=== PATIENT | female | born 1960 | race Caucasian/White ===

== ENCOUNTER 2019-11-05 11:16 | Outpatient (CLI) | payer OTHER, SELFPAY ==
[2019-11-05 11:29] LABS: Hematocrit 41.5 % (35.0-49.0); Hemoglobin 13.6 g/dL (12.0-15.0); Mean Corpuscular HGB Conc 32.8 g/dL (32.0-36.0); Mean Corpuscular Hemoglobin 30.9 pg (27.0-31.0); Mean Corpuscular Volume 94.3 fL (78.0-102.0); Mean Platelet Volume 10.3 fl (9.2-11.8); Platelet Count Result 258 K/mm3 (150-420); Red Cell Distribution Width 13.1 % (11.6-14.4); White Blood Count 7.5 K/mm3 (4.8-10.8)
[2019-11-05 12:20] LABS: Alanine Aminotransferase 24 U/L (14-59); Albumin Level 3.6 g/dL (3.4-5.0); Alkaline Phosphatase 74 U/L (46-116); Anion Gap 11.1 mmol/L (7-16); Aspartate Amino Transferase 21 U/L (15-37); Bilirubin,Total 0.2 mg/dL (0.00-1.00); Blood Urea Nitrogen 24 mg/dL (7-18); Calcium 9.2 mg/dL (8.5-10.1); Carbon Dioxide 29 mmol/L (21-32); Chloride 103 mmol/L (98-108); Cholesterol 185 mg/dL (0-200); Estimated Glomerular Filt Rate > 60; Glucose 100 mg/dL (70-99); HDL Direct 64 mg/dL (40-60); LDL Cholesterol Calculated 86 mg/dL (<130); Osmolality Calculated 292 mOsm/kg (285-295); Potassium 4.1 mmol/L (3.5-5.1); Sodium 139 mmol/L (136-145); Total Protein 6.8 g/dL (6.4-8.2); Triglycerides 173 mg/dL (0-150)
[2019-11-05 12:40] LABS: Thyroid Stimulating Hormone Reflex 1.27 u/IU/mL (0.36-3.74)
== END 2019-11-05 11:17 | disposition home or self-care (01) ==
PROVIDERS: PCP Family Medicine; Visit Provider Family Medicine
DX: I10 Essential (primary) hypertension (principal)
CPT/HCPCS: 36415; 80053; 80061; 84443; 85027

== ENCOUNTER 2021-05-16 15:45 | Outpatient (CLI) | payer OTHER, SELFPAY ==
[2021-05-18 21:43] LABS: H pylori, Urea Breath NOT DETECTED (NOT DETECTED)
== END 2021-05-16 15:46 | disposition home or self-care (01) ==
LOC: CHSLAB 15:48
PROVIDERS: PCP Family Medicine; Visit Provider Family Medicine
DX: K21.9 Gastro-esophageal reflux disease without esophagitis (principal)
CPT/HCPCS: 83013

== ENCOUNTER 2021-09-20 15:38 | Outpatient (CLI) | payer OTHER, SELFPAY ==
[2021-09-20 15:58] LABS: Hematocrit 40.2 % (35.0-49.0); Hemoglobin 12.8 g/dL (12.0-15.0); Mean Corpuscular HGB Conc 31.8 g/dL (32.0-36.0); Mean Corpuscular Hemoglobin 30.7 pg (27.0-31.0); Mean Corpuscular Volume 96.4 fL (78.0-102.0); Mean Platelet Volume 10.9 fl (9.2-11.8); Platelet Count Result 214 K/mm3 (150-420); Red Blood Count 4.17 M/mm3 (4.20-5.40); Red Cell Distribution Width 12.5 % (11.6-14.4); White Blood Count 6.5 K/mm3 (4.8-10.8)
[2021-09-20 16:49] LABS: Alanine Aminotransferase 29 U/L (14-59); Albumin Level 3.4 g/dL (3.4-5.0); Alkaline Phosphatase 66 U/L (46-116); Anion Gap 8 mmol/L (8-16); Aspartate Amino Transferase 20 U/L (15-37); Bilirubin,Total 0.3 mg/dL (0.00-1.00); Blood Urea Nitrogen 17 mg/dL (7-18); Calcium 8.6 mg/dL (8.5-10.1); Carbon Dioxide 26 mmol/L (21-32); Chloride 104 mmol/L (98-108); Estimated Glomerular Filt Rate > 60; Glucose 93 mg/dL (70-99); Osmolality Calculated 287 mOsm/kg (285-295); Potassium 3.6 mmol/L (3.5-5.1); Sodium 138 mmol/L (136-145); Total Protein 6.7 g/dL (6.4-8.2); Vitamin B12 789 pg/mL (193-986)
[2021-09-20 16:51] LABS: Thyroid Stimulating Hormone Reflex 1.53 u/IU/mL (0.36-3.74)
== END 2021-09-20 15:39 | disposition home or self-care (01) ==
LOC: CHSLAB 15:41
PROVIDERS: PCP Family Medicine; Visit Provider Family Medicine
DX: R53.83 Other fatigue (principal); E11.9 Type 2 diabetes mellitus without complications; E53.8 Deficiency of other specified B group vitamins
CPT/HCPCS: 36415; 80053; 82607; 82746; 83735; 84443; 85027

== ENCOUNTER 2022-03-14 10:16 | Day surgery (SDC) | payer OTHER, SELFPAY ==
[2021-11-29 08:48] VITALS: BMI 29.4
[2022-02-28 08:54] VITALS: BMI 28.5
[2022-03-14 10:50] VITALS: BP 127/96; PULSE 57; RESP 16; TEMP 37.2; O2SAT 99
--- NOTE | 2022-03-14 11:43 | WPDANESEPPF ---
Anes - Initial Pre Proc Eval Procedure: Operation Date: 03/14/22 12:00 Proposed Procedures p Esophagogastroduodenoscopy - Joni Campbell MD s Screening Colonoscopy - Joni Campbell MD Date/Time: 03/14/22 11:43 Surgeon: Joni Campbell MD Pre Op Diagnosis: Gerd and Family History of Colon Cancer Patient Data Age: 61 Gender: F Height: 1.6 m Weight: 71.4 kg Allergies Allergy/AdvReac Type Severity Reaction Status Date / Time No Known Allergies Allergy Mild Verified 03/14/22 10:51 Home Medications Medication Instructions Recorded Confirmed Type estradiol 0.5 mg tablet 0.5 mg PO DAILY 11/05/19 03/14/22 History escitalopram oxalate 10 mg tablet See Rx Instructions .Route 12/05/21 03/14/22 Rx .COMPLEX #90 tabs propranolol 60 mg tablet See Rx Instructions .Route 12/05/21 03/14/22 Rx .COMPLEX #180 tabs pantoprazole 40 mg tablet,delayed See Rx Instructions .Route 01/23/22 03/14/22 Rx release .COMPLEX #90 tabs meloxicam 15 mg tablet See Rx Instructions .Route 02/02/22 03/14/22 Rx .COMPLEX #90 tabs diphenhydramine HCl 25 mg capsule 25 mg PO HS 02/28/22 03/14/22 History (Benadryl) pseudoephedrine HCl 60 mg tablet 60 mg PO DAILY 02/28/22 03/14/22 History Patient hx anesthesia problems: none Family hx anesthesia problems: none Results Review: All pre-operative results and documents have been reviewed as part of the pre-operative evaluation. [facility] Past Medical History Medical History Chronic headache Family history of colon cancer Family history- stomach cancer Fatigue History of traumatic brain injury Hormone replacement therapy Hypertension Osteoarthritis Surgical History Surgical History History of breast augmentation History of hysterectomy 1999 Family History Family History Mother Family history of chronic obstructive pulmonary disease Family history of cardiovascular disease Father Family history of lung cancer Sibling Family history of renal failure Family history of lupus erythematosus Other Hypertension Social History Social History Smoking packs per day: 2 Smoking cigarettes per day: 40.0 Years smoked: 40 Smoking pack-years: 80.00 Smoking status: Former smoker Tobacco type: cigarettes Additional smoking assessment comments: Quit 2007. 35 pk yr history Alcohol intake: never Substance use: never Substance use type: does not use Living arrangements: with family Spiritual care concerns: No Anes - Eval Final PreProcedure Day of Procedure 03/14/22 11:43 Patient weight: overweight Heart: regular rate and rhythm Lungs: clear to auscultation Airway: Mallampati scale class II Neurological: alert and oriented Last oral intake: >/= 8 hours ASA classification: II Emergent: no Anesthesia type and monitoring: general GIVS and standard monitoring Results Review: All pre-operative results and documents have been reviewed as part of the pre-operative evaluation. Informed Consent: The patient's anesthetic plan and its attendant risks and benefits were discussed with the patient/family/POA. Questions were solicited and answers provided to the satisfaction of the patient/family/POA.
[2022-03-14] MEDS: LACTATED RINGERS 1,000 ML 150 ML IV CONT (11:53)
--- NOTE | 2022-03-14 12:15 | PM.HPGS ---
History of Present Illness History of Present Illness Consent: Risks, benefits, and alternatives have been discussed and questions answered. Patient agrees to proceed with procedure. Chief complaint: Gerd and Family History of Colon Cancer Narrative: Luis Paiz is a 61 year old female with gerd on protonix, also had colonoscopy at 52yo. she had one sister that from stomach cancer at her early 50's, another sister with advanced colon cancer late 60's. Review of Systems Constitutional: Constitutional: Denies headache(s) and Denies weakness Eyes: Eyes: Denies blurry vision ENT: Reports Normal hearing present, Denies headache(s) and Denies neck pain Cardiovascular: Cardiovascular: Denies chest pain and Denies dyspnea Respiratory: Respiratory: Denies dyspnea Gastrointestinal: Gastrointestinal: Reports no additional gastrointestinal complaints Genitourinary: Genitourinary: Denies dysuria Musculoskeletal: Musculoskeletal: Denies neck pain Integumentary/Breasts: Skin/Breast: Denies dry skin Neurologic: Reports Normal hearing present, Denies headache(s) and Denies weakness Psychiatric: Psychiatric: Denies anxiety Endocrine: Endocrine: Denies change in body appearance Hematologic/Lymphatic: Hematologic/Lymphatic: Denies easy bleeding Allergic/Immunologic: Allergic/Immunologic: Denies urticaria PMFSH Past Medical History Medical History Chronic headache Family history of colon cancer Family history- stomach cancer Fatigue History of traumatic brain injury Hormone replacement therapy Hypertension Osteoarthritis Surgical History Surgical History History of breast augmentation History of hysterectomy 1999 Family History Family History Mother Family history of chronic obstructive pulmonary disease Family history of cardiovascular disease Father Family history of lung cancer Sibling Family history of renal failure Family history of lupus erythematosus Other Hypertension Social History Social History Smoking packs per day: 2 Smoking cigarettes per day: 40.0 Years smoked: 40 Smoking pack-years: 80.00 Smoking status: Former smoker Tobacco type: cigarettes Additional smoking assessment comments: Quit 2008. 35 pk yr history Alcohol intake: never Substance use: never Substance use type: does not use Living arrangements: with family Spiritual care concerns: No Meds Home Medications and Allergies Home Medications Medication Instructions Recorded Confirmed Type estradiol 0.5 mg tablet 0.5 mg PO DAILY 11/05/19 03/14/22 History escitalopram oxalate 10 mg tablet See Rx Instructions .Route 12/05/21 03/14/22 Rx .COMPLEX #90 tabs propranolol 60 mg tablet See Rx Instructions .Route 12/05/21 03/14/22 Rx .COMPLEX #180 tabs pantoprazole 40 mg tablet,delayed See Rx Instructions .Route 01/23/22 03/14/22 Rx release .COMPLEX #90 tabs meloxicam 15 mg tablet See Rx Instructions .Route 02/02/22 03/14/22 Rx .COMPLEX #90 tabs diphenhydramine HCl 25 mg capsule 25 mg PO HS 02/28/22 03/14/22 History (Benadryl) pseudoephedrine HCl 60 mg tablet 60 mg PO DAILY 02/28/22 03/14/22 History Allergies Allergy/AdvReac Type Severity Reaction Status Date / Time No Known Allergies Allergy Mild Verified 03/14/22 10:51 Vital Signs Vital Signs - 24 hr 03/14/22 10:50 Temperature 99 F Pulse Rate 57 L Respiratory Rate 16 Blood Pressure 127/96 H Pulse Oximetry 99 Oxygen Delivery Room Air Exam Const: General: comfortable and no acute distress HENMT: Face/Nose/Sinus: Normal nares present Eyes: General: appearance normal, both eyes and all related structures Neck: Neck: no JVD Resp: Auscultation: clear to auscultation bilaterally Cardio:
[2022-03-14 12:37] VITALS: BP 104/68; PULSE 53; RESP 12; O2SAT 98
[2022-03-14 12:47] VITALS: BP 123/73; PULSE 55; RESP 12; O2SAT 100
--- NOTE | 2022-03-14 12:47 | WPDANESPN ---
Anes - Prog Note Post-Op Date/Time: 03/14/22 12:47 Cardiovascular status: normal Respiratory status: normal Airway patency: baseline Mental status: baseline Post-Op hydration status: normal Vital Signs: Last Vital Signs Temp 37.2 C 03/14/22 10:50 Pulse 53 L 03/14/22 12:37 Resp 12 03/14/22 12:37 BP 104/68 03/14/22 12:37 Pulse Ox 98 03/14/22 12:37 O2 Del Method Room Air 03/14/22 12:37 Pain Score (VAS): 0/10 I/O: Intake & Output 03/13/22 03/14/22 03/14/22 23:59 07:59 15:59 Intake Total 300 Balance 300 Patient Feedback: Patient satisfied with anesthetic care.
[2022-03-14 12:57] VITALS: BP 115/66; PULSE 58; RESP 12; O2SAT 100
== END 2022-03-14 13:12 | disposition home or self-care (01) ==
PROVIDERS: PCP Family Medicine; Visit Provider Internal Medicine Gastroenterology
PROC: 0DJ08ZZ Inspection of Upper Intestinal Tract, Via Natural or Artificial Opening Endoscopic (ICD-10-PCS; CPT 43235; principal; 2022-03-14 12:00)
PROC: 0DJD8ZZ Inspection of Lower Intestinal Tract, Via Natural or Artificial Opening Endoscopic (ICD-10-PCS; CPT 45378; 2022-03-14 12:00)
DX: Z80.0 Family history of malignant neoplasm of digestive organs (principal)
CPT/HCPCS: 45378; 43239

== ENCOUNTER 2022-03-14 13:00 | Outpatient (NON) | payer OTHER, SELFPAY | END 2022-03-14 13:01 | disposition home or self-care (01) | PROVIDERS: PCP Family Medicine; Visit Provider Internal Medicine Gastroenterology | DX: K21.9 Gastro-esophageal reflux disease without esophagitis (principal) | CPT/HCPCS: 88305 ==

== ENCOUNTER 2023-05-17 11:43 | Outpatient (CLI) | payer OTHER, SELFPAY ==
[2023-05-17 12:09] LABS: Basophils Absolute Auto 0.05 K/mm3 (0.00-0.10); Basophils Percent Auto 0.6 % (0.0-1.0); Eosinophils Absolute Auto 0.39 K/mm3 (0.02-0.50); Eosinophils Percent Auto 4.6 % (1.0-6.0); Hematocrit 39.5 % (35.0-49.0); Hemoglobin 12.7 g/dL (12.0-15.0); Immature Granulocyte Absolute 0.03 K/mm3 (0.00-0.00); Immature Granulocyte Percent A 0.4 % (0.0-0.0); Lymphocytes Absolute Auto 1.75 K/mm3 (1.10-4.50); Lymphocytes Percent Auto 20.5 % (18.0-42.0); Mean Corpuscular HGB Conc 32.2 g/dL (32.0-36.0); Mean Corpuscular Hemoglobin 31.2 pg (27.0-31.0); Mean Corpuscular Volume 97.1 fL (78.0-102.0); Monocytes Absolute Auto 0.66 K/mm3 (0.10-0.90); Monocytes Percent Auto 7.7 % (2.0-11.0); Neutrophils Absolute Auto 5.7 K/mm3 (1.7-7.2); Neutrophils Percent Auto 66.2 % (50.0-70.0); Platelet Count Result 253 K/mm3 (150-420); Red Blood Count 4.07 M/mm3 (4.20-5.40); Red Cell Distribution Width 13.4 % (11.6-14.4); White Blood Count 8.6 K/mm3 (4.8-10.8)
[2023-05-17 15:15] LABS: Alanine Aminotransferase 30 U/L (14-59); Albumin Level 3.5 g/dL (3.4-5.0); Alkaline Phosphatase 86 U/L (46-116); Anion Gap 7 mmol/L (8-16); Aspartate Amino Transferase 18 U/L (15-37); Bilirubin,Total 0.3 mg/dL (0.00-1.00); Blood Urea Nitrogen 14 mg/dL (7-18); Calcium 9.1 mg/dL (8.5-10.1); Carbon Dioxide 29 mmol/L (21-32); Chloride 102 mmol/L (98-108); Cholesterol 167 mg/dL (0-200); Estimated Glomerular Filt Rate > 60; Glucose 80 mg/dL (70-99); HDL Direct 73 mg/dL (40-60); LDL Cholesterol Calculated 80 mg/dL (<130); Osmolality Calculated 285 mOsm/kg (285-295); Potassium 4.4 mmol/L (3.5-5.1); Sodium 138 mmol/L (136-145); Triglycerides 68 mg/dL (0-150)
== END 2023-05-17 11:44 | disposition home or self-care (01) ==
LOC: CHSLAB 11:45
PROVIDERS: PCP Family Medicine; Visit Provider Family Medicine
DX: Z00.00 Encounter for general adult medical examination without abnormal findings (principal)
CPT/HCPCS: 36415; 80053; 80061; 85025

== ENCOUNTER 2024-11-05 10:12 | Emergency (ER) | payer BC, SELFPAY ==
[2024-11-05 10:13] VITALS: BP 130/55; PULSE 51; RESP 18; TEMP 36.7; O2SAT 97
--- NOTE | 2024-11-05 10:16 | ED_ITS ---
HPI - Wound/Laceration General Chief Complaint: Wound/Laceration Stated Complaint: wound to rt. pointer finger Time Seen by Provider: 11/05/24 10:15 Source: patient Mode of arrival: ambulatory Limitations: no limitations History of Present Illness HPI narrative: Patient is a 64-year-old female with a right pointer finger extensor surface deep laceration after getting it into a doorjamb prior to arrival. This was an accident. She was caring a laundry basket and it got lacerated while walking and hitting the door jam. Tetanus shot 2018. No major bleeding or pain. Onset (ago): hour(s) ( One) Location: other ( right pointer finger extensor surface) Place: home Patient tetanus UTD: No ( more than 5 years) Context: accidental Associated symptoms: none Treatments prior to arrival: bandage Related Data Home Medications ?Medication ?Instructions ?Recorded ?Confirmed ?Last Taken ?Type estradiol 0.5 mg tablet 0.5 mg PO DAILY 09/30/24 09/30/24 Unknown History Allergies Allergy/AdvReac Type Severity Reaction Status Date / Time No Known Allergies Allergy Mild Verified 09/30/24 09:10 Review of Systems Review of Systems: All systems reviewed & are unremarkable except as noted in HPI and below Constitutional: Constitutional: Reports no additional constitutional complaints Eyes: Eyes: Reports no additional eye complaints ENT: Reports system reviewed and no additional complaints, except as documented Cardiovascular: Cardiovascular: Reports no additional cardiovascular c omplaints Respiratory: Respiratory: Reports no additional respiratory complaints Gastrointestinal: Gastrointestinal: Reports no additional gastrointestinal complaints Genitourinary: Genitourinary: Reports no additional female genitourinary complaints Musculoskeletal: Musculoskeletal: Reports no additional musculoskeletal complaints Integumentary/Breasts: Skin/Breast: Reports system reviewed and no additional complaints, except as docu Neurologic: Reports system reviewed and no additional complaints, except as documented Psychiatric: Psychiatric: Reports no additional psychiatric complaints Endocrine: Endocrine: Reports no additional endocrine complaints Hematologic/Lymphatic: Hematologic/Lymphatic: Reports no additional hematolo gic/lymphatic complaints Allergic/Immunologic: Allergic/Immunologic: Reports no additional allergic/immunologic complaints PMFSH Past Medical History Medical History Family history- stomach cancer Family history of colon cancer Fatigue Chronic headache History of traumatic brain injury Hormone replacement therapy Osteoarthritis Hypertension Surgical History Surgical History History of breast augmentation History of hysterectomy 1999 Family History Family History Mother Family history of chronic obstructive pulmonary disease Family history of cardiovascular disease Father Family history of lung cancer Sibling Family history of renal failure Family history of lupus erythematosus Other Hypertension Social History Social History Smoking packs per day: 2 Smoking cigarettes per day: 40.0 Years smoked: 40 Smoking pack-years: 80.00 Smoking status: Former smoker Tobacco type: cigarettes Additional smoking assessment comments: Quit 2008. 35 pk yr history Alcohol intake: never Substance use: never Substance use type: does not use Living arrangements: with family Spiritual care concerns: No Exam Const: General: healthy appearing Nutritional Appearance: well nourished Orientation/consciousness: patient oriented x3 HENMT: Head: normal to inspection Ears: external ears normal Face/Nose/Sinus: Normal external nose present Eyes: Conjunctivae: conjunctivae normal Pupils: Equal, round and reactive pupils present EOM: EOMs intact bilaterally Neck: Neck: normal visual inspection Chest: Chest palpation & inspection: normal inspection of the chest Resp: Effort & Inspection: normal respiratory effort and not labored Auscultation: clear to auscultation bilaterally and no crackles Cardio: Rate: regular rate Rhythm: regular rhythm Heart sounds: no murmurs GI: Inspection: non-distended GI Palp: Yes Soft to palpation, No Tenderness to palpation present (GI) and No Guarding due to palpation present (GI) Auscultation: normal bowel sounds Back/Spine/Pelvis: Back: no CVA tenderness Skin: General skin exam: normal color Rashes: no rashes Wounds: wound noted Other: right pointer finger extensor surface lateral aspect has a curvilinear flap laceration of 6 cm without bleeding or signs of infection; this is a deep wound down to the tendon region without tendon disruption Neuro: General: patient oriented x3 Cranial nerves: Yes Nystagmus not present Speech: normal speech Gait exam (Neuro): Normal gait present Extrem: General: abnormal to inspection Other: see skin exam Psych: Mental Status: mental status grossly normal Affect: normal affect Attitude: cooperative Course Vital Signs Vital signs: Vital Signs Temperature 36.7 C 11/05/24 10:13 Pulse Rate 51 L 11/05/24 10:13 Respiratory Rate 18 11/05/24 10:13 Blood Pressure 130/55 L 11/05/24 10:13 Pulse Oximetry 97 11/05/24 10:13 Oxygen Delivery Room Air 11/05/24 10:13 Temperature 36.7 C 11/05/24 10:13 Pulse Rate 51 L 11/05/24 10:13 Respiratory Rate 18 11/05/24 10:13 Blood Pressure 130/55 L 11/05/24 10:13 Pulse Oximetry 97 11/05/24 10:13 Oxygen Delivery Room Air 11/05/24 10:13 Procedures Other Procedure Procedure 1: Other Procedure: Right pointer finger laceration repair: 6 cm curvilinear with 16 sutures: Area was cleaned with chlorhexidine and iodine and saline, sterile procedure done, anesthesia with 10 cc of lidocaine and only used 8, 16 running sutures placed, area cleaned again with saline, Dermabond placed on small edges of unsutured areas, area cleaned again and antibiotic ointment placed on top with a finger splint, patient tolerated procedure well and no complications MDM - Wound/Laceration MDM Narrative Medical decision making narrative: patient is a 64-year-old female with a right pointer finger wound after accidentally getting caught in door jam. We will clean the area and then anesthetize and suture. She will get a tetanus shot. She will get antibiotics. X-ray not needed at this was not a major trauma and it was more a superficial injury but caused a large laceration to the tendons without tendon disruption. Discharge Plan Discharge Clinical Impression: Finger laceration Qualifiers: Encounter type: initial encounter Finger: index finger Damage to nail status: without damage Foreign body presence: without foreign body Laterality: right Qualified Code(s): S61.210A - Laceration without foreign body of right index finger without damage to nail, initial encounter Patient Disposition: Home Condition: Stable Instructions: Antibiotic Form Additional Instructions: Please have sutures removed in 8-10 days. Keep area clean and use antibiotic ointment or cream 1 to 2 times a day. This may use a light bandage /pain date at home to cover the area. Come back to the ER if there is any redness or pus or worse symptoms. please use antibiotic ointment to the area daily with a new bandage daily. Patient Language: Martiniquais Prescriptions: New cephalexin 500 mg capsule 500 mg PO QID 10 Days Qty: 40 0RF No Action estradiol 0.5 mg tablet 0.5 mg PO DAILY Rx Instructions: off 5 days; repeat cycle prednisone 10 mg tablet 10 mg PO DIRECTED Qty: 21 0RF Rx Instructions: 6-5-4-3-2-1 propranolol 60 mg tablet See Rx Instructions .ROUTE .COMPLEX Qty: 180 3RF Dose Instruction: Take 1 tablet by mouth twice daily Rx Instructions: Take 1 tablet by mouth twice daily escitalopram oxalate 10 mg tablet See Rx Instructions .ROUTE .COMPLEX Qty: 90 3RF Dose Instruction: Take 1 tablet by mouth once daily Rx Instructions: Take 1 tablet by mouth once daily meloxicam 15 mg tablet See Rx Instructions .ROUTE .COMPLEX Qty: 90 0RF Dose Instruction: Take 1 tablet by mouth once daily Rx Instructions: Take 1 tablet by mouth once daily Follow-up/Referrals: Seth Bryant DO [Primary Care Provider] - Time of Disposition: 11:12
[2024-11-05] MEDS: TETANUS,DIPHTHERIA,AC PERTUSSIS ADULT 0.5 ML (ADACEL) IM (10:24)
[2024-11-05] MEDS: LIDOCAINE 1% LOCAL INJ 10 ML VIAL INFILTRATE (10:27)
[2024-11-05] MEDS: NEOMYCIN/POLYMYXIN/BACITRACIN OINTMENT PACKET 1 PACKET TOPICAL (10:27)
== END 2024-11-05 11:17 | disposition home or self-care (01) ==
LOC: CHSED 11:15
PROVIDERS: Emergency Provider Emergency Medicine; PCP Family Medicine
DX: S61.210A Laceration without foreign body of right index finger without damage to nail, initial encounter (principal); Z23 Encounter for immunization; I10 Essential (primary) hypertension; Z87.891 Personal history of nicotine dependence; W23.0XXA Caught, crushed, jammed, or pinched between moving objects, initial encounter
CPT/HCPCS: 12002; 90471; 90715; 99283; J2003